=== PATIENT | female | born 1990 | race Asian ===

== ENCOUNTER 2021-04-29 10:56 | Emergency (ER) | payer OTHER ==
[~2021-04-29] VITALS: Ht 150 cm; Wt 46.0 kg
[2021-04-29 11:06] VITALS: BP 123/82
== END 2021-04-29 11:32 | disposition home or self-care (01) ==
LOC: ER 10:56
PROVIDERS: Nurse Practitioner Family
DX: Z20.822 Contact with and (suspected) exposure to COVID-19 (principal)